=== PATIENT | male | born 1985 | race Caucasian/White ===

== ENCOUNTER 2018-12-24 18:44 | Emergency (ER) | payer BC ==
[2018-12-24] MEDS ORDERED: Lorazepam 2 MG/ML VIAL ONE (19:02)
[2018-12-24 19:24] LABS: #Basophils 0.1 thou/uL (0.0-0.2); #Eosinphils 0.2 thou/uL (0.0-0.7); #Lymphocytes 2.5 thou/uL (1.20-3.40); #Neutrophils 7.2 thou/uL (1.40-6.50); %Basophils 0.8 % (0.0-1.0); %Eosinophils 1.7 % (0.0-10.0); %Lymphocytes 23.2 % (21.0-51.0); %Monocytes 8.9 % (0.0-10.0); %Neutrophils 65.4 % (42.0-75.0); Hemoglobin 14.8 g/dL (14.0-18.0); Mean Corpuscular HGB CONC 34.5 g/dL (32.0-36.0); Mean Corpuscular Volume 89.8 fL (78.0-98.0); Platelet Count 254 thou/uL (130-400); RBC Distribution Width 11.5 % (11.5-14.5); Red Blood Cell (RBC) Count 4.77 mill/uL (4.70-6.10); White Blood Cell (WBC) Count 10.9 thou/uL (4.8-10.8)
--- NOTE | 2018-12-24 19:34 | RAD ---
EXAM: Single view of the chest HISTORY: Hyperventilating and chest pain COMPARISON: 04/24/2015 FINDINGS: Single view of the chest shows a normal sized cardiomediastinal silhouette. There is no blanca dence of consolidation, mass, or pleural effusion. The bones are unremarkable. IMPRESSION: No evidence of acute cardiopulmonary disease
[2018-12-24 19:38] LABS: ALT (SGPT) 27 U/L (8-55); AST (SGOT) 20 U/L (5-34); Albumin 4.2 g/dL (3.5-5.0); Alkaline Phosphatase 119 U/L (40-150); Anion Gap 17 mmol/L (10-20); BUN (Urea Nitrogen) 15 mg/dL (8.9-20.6); Bilirubin, Total 0.3 mg/dL (0.2-1.2); Calc. Creatinine Clearance 0 mL/min (70-130); Calcium 8.8 mg/dL (7.8-10.44); Carbon Dioxide 19 mmol/L (22-29); Chloride 106 mmol/L (98-107); Estimated GFR-MDRD 67; Globulin 2.2 g/dL (2.4-3.5); Glucose 81 mg/dL (70-105); Protein, Total 6.4 g/dL (6.0-8.3); Sodium 139 mmol/L (136-145)
[2018-12-24 19:39] LABS: Potassium 2.8 mmol/L (3.5-5.1)
[2018-12-24] MEDS ORDERED: Magnesium 2 GM/50 ML BAG (IN WATER) ONE (19:51)
[2018-12-24] MEDS ORDERED: Potassium Chloride 20 MEQ TAB ONE (19:51)
[2018-12-24 20:40] LABS: Bilirubin Negative (Negative); Blood, Urine Negative (Negative); Clarity Clear (Clear); Glucose, Urine (Dipstick) Normal (Negative); Leukocyte Negative Leu/uL (Negative); Nitrite Negative (Negative); Protein, Urine (Dipstick) Negative (Neg-Trace); Urobilinogen Normal mg/dL (Less than 2)
--- NOTE | 2018-12-27 12:32 | EKG ---
Test Reason : BLURRED VISION Blood Pressure : / mmHG Vent. Rate : 086 BPM Atrial Rate : 086 BPM P-R Int : 162 ms QRS Dur : 094 ms QT Int : 386 ms P-R-T Axes : 047 020 022 degrees QTc Int : 461 ms Normal sinus rhythm Normal ECG Confirmed by LIANG YOUNG DO ([id number]), website/blog editor CASSIE PAK ([id number]) on 12/27/2018 12:31:41 PM Referred By: HANNAH Confirmed By:LIANG YOUNG DO
== END 2018-12-24 21:49 | disposition home or self-care (01) ==
LOC: ERS 18:44
DX: R25.2 Cramp and spasm (principal); R11.2 Nausea with vomiting, unspecified; I10 Essential (primary) hypertension; K21.9 Gastro-esophageal reflux disease without esophagitis; Z87.891 Personal history of nicotine dependence
CPT/HCPCS: 36415; 71045; 80053; 81003; 82340; 83735; 84484; 85025; 93005; 96365; 96375; J2060; J3475

== ENCOUNTER 2022-11-12 18:59 | Emergency (ER) | payer BC, OTHER | END 2022-11-12 21:42 | disposition home or self-care (01) | LOC: ERS 18:59 | DX: F07.81 Postconcussional syndrome (principal); I10 Essential (primary) hypertension; F17.290 Nicotine dependence, other tobacco product, uncomplicated | CPT/HCPCS: 99283 ==